=== PATIENT | male | born 1970 | race Caucasian/White ===

== ENCOUNTER 2017-01-13 13:16 | Emergency (ER) | payer BC ==
--- NOTE | 2017-01-13 13:46 | Emergency Department Record ---
History of Present Illness - General Chief Complaint: Abdominal Pain Stated Complaint: ABD PAIN Time Seen by Provider: 01/13/17 13:43 Source: Patient Mode of Arrival: Ambulatory Limitations: No limitations - History of Present Illness Initial Comments: 46 yo male presents with low abdominal pain. He has a history of Stage IV colon cancer. It was diagnosed in 06/2015. He had a resection at that time. He has undergone chemotherapy through [facility]. He has been off chemo for 1.5 months. He has known metastatic disease. He began having progressive pain the last 3-4 months. He began narcotic pain medications about 3 weeks ago with a bowel program. He has not had a bowel movement since Thursday. He normally has 3 per day. He is passing some gas. No vomiting. PCP Noah. Oncology [facility] Gen Surgeon Deppen. He is scheduled to start a new chemotherapy at [facility] Complaint: Abdominal pain (Constipation) Onset/Timin -: Days(s) Location: LLQ, RLQ Radiation: None Migration to: No migration Severity: Severe Quality: Aching, Cramping Consistency: Constant Improves With: Nothing Worsens With: Bowel movement Associated Symptoms: Denies other symptoms - Related Data Home Medications Medication Instructions Recorded Confirmed Last Taken Acetaminop W/ Codeine 300/30Mg 1 tab PO Q6H 01/13/17 01/13/17 Unknown [Tylenol #3] Bisacodyl [Dulcolax] 5 mg PO DAILY 01/13/17 01/13/17 Unknown Diltiazem HCl [Cardizem] 120 mg PO QAM 01/13/17 01/13/17 Unknown Furosemide [Lasix] 40 mg PO DAILY 01/13/17 01/13/17 Unknown Hydromorphone HCl [Dilaudid] 2 mg PO ASDIR 01/13/17 01/13/17 Unknown Lorazepam [Ativan] 1 mg PO QHS 01/13/17 01/13/17 Unknown Mirtazapine [Remeron] 30 mg PO QHS 01/13/17 01/13/17 Unknown Morphine Sulfate 30 mg PO Q12H 01/13/17 01/13/17 Unknown Ondansetron [Zofran Odt] 4 mg PO NOW 01/13/17 01/13/17 Unknown Triamterene/Hydrochlorothiazid 1 each PO DAILY 01/13/17 01/13/17 Unknown [Dyazide 37.5-25 Capsule] Allergies Allergy/AdvReac Type Severity Reaction Status Date / Time Penicillins Allergy Severe HIVES Verified 01/13/17 13:27 acetaminophen [From [facility]] AdvReac Severe VOMITING Verified 01/13/17 13:27 hydrocodone [From [facility]] AdvReac Severe VOMITING Verified 01/13/17 13:27 Travel Screening - Travel/Exposure Within Last 30 Days Have you traveled within the last 30 days?: No Review of Systems Constitutional: Reports: Malaise, Weakness. Denies: Chills, Fever Eyes: Denies: Eye discharge ENT: Denies: Congestion, Throat pain Respiratory: Denies: Cough, Dyspnea, Hemoptysis, Stridor, Wheezes Cardiovascular: Denies: Chest pain, Palpitations, Syncope Endocrine: Reports: Fatigue. Denies: Polydipsia, Polyuria Gastrointestinal: Reports: Abdominal pain, Constipation. Denies: Diarrhea, Hematemesis, Hematochezia, Nausea, Vomiting Genitourinary: Denies: Dysuria, Frequency, Hematuria Musculoskeletal: Denies: Arthralgia, Back pain, Myalgia Skin: Denies: Bruising, Change in color, Rash Neurological: Denies: Confusion, Headache, Numbness, Vertigo, Weakness Psychiatric: Denies: Anxiety Hematological/Lymphatic: Denies: Blood Clots, Easy bleeding, Easy bruising, Swollen glands Past Medical History - SOCIAL HISTORY Smoking Status: Former smoker Alcohol Use: None Drug Use: None - RESPIRATORY Hx Respiratory Disorders: No - CARDIOVASCULAR Hx Cardio Disorders: Yes Hx CHF: Yes Hx Hypertension: Yes - NEURO Hx Neuro Disorders: No - GI Hx GI Disorders: Yes Hx Wt Loss/Wt Gain: Yes (recently lost 25 lbs) - Hx Genitourinary Disorders: No - ENDOCRINE Hx Endocrine Disorders: No - MUSCULOSKELETAL Hx Musculoskeletal Disorders: No - PSYCH Hx Psych Problems: Yes Hx Anxiety: Yes Hx Depression: Yes - HEMATOLOGY/ONCOLOGY Hx Hematology/Oncology Disorders: Yes Hx Cancer: Yes (colon) Hx Chemotherapy: Yes Hx Radiation Therapy: No (soon for spot in brain) Family Medical History Any Significant Family History?: Yes Hx Cancer: Mother *Cancer Comment: questionable colon cancer Hx HTN: Father Physical Exam - General General Appearance: Alert, Oriented x3, Cooperative, No acute distress Limitations: No limitations - Head Head exam: Normal inspection - Eye Eye exam: Normal appearance, PERRL. negative: Conjunctival injection, Scleral icterus - ENT ENT exam: Normal exam, Mucous membranes moist, Normal external ear exam, Normal orophraynx Ear exam: Normal external inspection. negative: External canal tenderness Nasal Exam: Normal inspection. negative: Discharge, Sinus tenderness Mouth exam: Normal external inspection, Tongue normal - Neck Neck exam: Normal inspection, Full ROM. negative: Tenderness - Respiratory Respiratory exam: Normal lung sounds bilaterally. negative: Respiratory distress - Cardiovascular Cardiovascular Exam: Regular rate, Normal rhythm, Normal heart sounds - GI/Abdominal GI/Abdominal exam: Soft, Tenderness (tender in the LLQ) - Rectal Rectal exam: Heme (-) stool, Normal inspection, Other (No stool palpated on JEWELL) . negative: Black stool, Bloody stool, Fecal impaction, Hemorrhoids, Mass - exam: Deferred - Extremities Extremities exam: Normal inspection, Full ROM, Normal capillary refill. negative: Tenderness - Back Back exam: Reports: Normal inspection, Full ROM. Denies: Muscle spasm, Rash noted, Tenderness - Neurological Neurological exam: Alert, Normal gait, Oriented X3 - Psychiatric Psychiatric exam: Normal affect, Normal mood - Skin Skin exam: Dry, Intact, Normal color, Warm Course Vital Signs 01/13/17 13:23 Temperature 98.2 F Pulse Rate 122 H Respiratory 18 Rate Blood Pressure 145/106 Pulse Ox 98 - Reevaluation(s) Reevaluation #1: The labs were reviewed WBC is 12.5 The Alk Phos 474. Lipase 185 Lactic Acid 1.6 01/13/17 14:51 01/13/17 14:55 Reevaluation #2: The CT scan was reviewed with the radiologist. No obstruction. Pulmonary nodules notes suspicious for mets, stable necrotic retroperitoneal LN, moderate stool noted without any significant stool in the rectosigmoid. 01/13/17 17:12 I RUBI Cortés of [facility] oncology We discussed the labs and CT scan He recommended Miralax (the patient has this at home) The patient has an appointment tomorrow and the next day at [facility] He is to return or go directly to [facility] ED 01/13/17 17:24 Medical Decision Making - Lab Data Result diagrams: 01/13/17 14:01 01/13/17 14:01 Disposition Disposition: Discharge Clinical Impression: Metastasis from colon cancer Abdominal pain Qualifiers: Abdominal location: unspecified location Qualified Code(s): R10.9 - Unspecified abdominal pain Constipation Qualifiers: Constipation type: unspecified constipation type Qualified Code(s): K59.00 - Constipation, unspecified Disposition: Home, Self-Care Condition: (1) Good Instructions: Constipation (ED) Additional Instructions: Return immediately or go to the [facility] ED if you have uncontrolled pain, fever, vomiting or concerns Start the Miralax daily Forms: Patient Portal Access Time of Disposition: 17:33 Quality - Quality Measures Quality Measures: N/A - Blood Pressure Screening Does Patient Have Any of the Following: No Blood Pressure Classification: Hypertensive Reading Systolic Measurement: 145 Diastolic Measurement: 106 Screening for High Blood Pressure: < Pre-Hypertensive BP, F/U Documented > [ [id number]] Pre-Hypertensive Follow-up Interventions: Referral to alternative/primary care provider.
[2017-01-13] MEDS ORDERED: 0.9 % SODIUM CHLORIDE 1,000 ML BAG IV ONE (13:56)
[2017-01-13] MEDS ORDERED: HYDROMORPHONE HCL 1MG/ML **SYRINGE IVP ONE ×3 (13:58→15:58)
[2017-01-13] MEDS ORDERED: ACETAMINOPHEN 1,000 MG/100 ML BTL IVPB ONE (13:58)
[2017-01-13 14:24] LABS: HEMATOCRIT 45.5 % (42.0-52.0); HEMOGLOBIN 14.5 gm/dl (14.0-18.0); MEAN CELL VOLUME 95.8 fl (81-97); MEAN CORPUSCULAR HEMOGLOBIN 30.5 pg (27-33); MEAN CORPUSCULAR HGB CONC 31.9 g/dl (32-36); MEAN PLATELET VOLUME 10.4 fl (7.4-10.4); PLATELET COUNT 211 K/uL (130-400); RED BLOOD COUNT 4.75 M/uL (4.40-5.70); RED CELL DISTRIBUTION WIDTH 15.9 % (11.5-14.5); WHITE BLOOD COUNT W/O DIFF 12.5 K/uL (4.2-12.2)
[2017-01-13 14:39] LABS: ALBUMIN 4.3 gm/dL (3.5-5.0); ALKALINE PHOSPHATASE 474 U/L (38-126); ALT/SGPT 55 U/L (21-72); ANION GAP 13.3 (7-16); AST/SGOT 59 U/L (17-59); BILIRUBIN,TOTAL 1.81 mg/dL (0.2-1.3); BLOOD UREA NITROGEN 12 mg/dL (9-20); CARBON DIOXIDE 26.7 mmol/L (22-30); CREATININE 1.3 mg/dL (0.66-1.25); EST GLOMERULAR FILTRATION RATE > 60 ml/min; GLUCOSE,RANDOM 114 mg/dL (70-110); LIPASE 185 U/L (23-300); TOTAL PROTEIN 7.2 gm/dL (6.3-8.2)
[2017-01-13 17:22] LABS: URINE APPEARANCE CLEAR; URINE BILIRUBIN NEGATIVE (NEGATIVE); URINE BLOOD NEGATIVE (NEGATIVE); URINE COLOR YELLOW; URINE GLUCOSE (UA) NEGATIVE (NEGATIVE); URINE KETONE NEGATIVE (NEGATIVE); URINE LEUKOCYTE ESTERASE NEGATIVE (NEGATIVE); URINE NITRITE NEGATIVE (NEGATIVE)
[2017-01-13 17:58] LABS: URINE BACTERIA FEW; URINE EPITHELIAL CELLS 0 - 2 (FEW); URINE RBC 0 - 2 (NONE SEEN); URINE WBC 0 - 2 (0-2/hpf)
--- NOTE | 2017-01-14 20:29 | CT SCAN REPORT ---
EXAM: CT SCAN ABDOMEN/PELVIS W CONTRAST HISTORY: ABDOMINAL PAIN. TECHNIQUE: CT of the abdomen and pelvis was performed following the IV administration of 100 mL of Omnipaque-300 contrast. Oral contrast also utilized. COMPARISON: Prior CT from 06/22/15. Comparison was also made with an outside CT report dated 12/26/16. FINDINGS: Limited evaluation of the lung bases shows nodules in the right lung base and right middle lobe. The nodule in the right middle lobe is indeterminate based on the 2016 exam but the nodule in the right lung base is new from 2016. This area was not described on the outside CT report. The nodule in the right lung base measures approximately 9.4 mm, the right middle lobe nodule measures approximately 9.7 mm. These likely relate to areas of metastasis. Osseous structures are grossly intact. Small pericardial effusion. The liver is unremarkable. The spleen is enlarged, measuring 16 cm. The adrenal glands and pancreas are unremarkable. The gallbladder is present. Unremarkable appearance to the kidneys bilaterally. There is retroperitoneal adenopathy, with necrotic periaortic and aortocaval lymph nodes. On todays exam, the largest node extends anterior to the left common iliac artery measuring 2.5 x 2.1 cm. This measured 3.2 x 2.8 cm on the 2016 exam. Allowing for differences in technique, this is likely stable from the 12/26/16 exam, given the measurements provided. Other adenopathy is grossly stable when correlating with the report only. Postsurgical changes in the region of the rectosigmoid colon. No evidence for bowel obstruction. There is no free intraperitoneal air. Normal appendix. No free fluid. IMPRESSION: 1. GROSSLY STABLE RETROPERITONEAL ADENOPATHY WHEN CORRELATING WITH THE MOST RECENT CT REPORT. HOWEVER, NOT MENTIONED ON THE PRIOR CT REPORT ARE NODULES IN THE RIGHT LUNG BASE AND RIGHT MIDDLE LOBE, LIKELY METASTATIC. 2. STABLE SPLENOMEGALY. SMALL PERICARDIAL EFFUSION. JOB NUMBER: [id number] [facility]
== END 2017-01-13 17:30 | disposition home or self-care (01) ==
LOC: ER 13:16
DX: C78.00 Secondary malignant neoplasm of unspecified lung (principal); K59.00 Constipation, unspecified; R10.32 Left lower quadrant pain; Z85.038 Personal history of other malignant neoplasm of large intestine
CPT/HCPCS: 99284 ×2; 96376; 96374; 96375; 83605; 83690; 80076; 80048; 81001; 85027; 74177; Q9967; J1170; J7030